=== PATIENT | male | born 1960 | race Two or more races ===

== ENCOUNTER 2021-07-21 23:51 | Emergency (ER) | payer OTHER ==
[~2021-07-21] VITALS: Ht 167.6 cm; Wt 90.0 kg
[2021-07-21 23:53] VITALS: BP 156/81
[2021-07-21] MEDS ORDERED: DUTA1CPM4 PO (23:58)
[2021-07-21] MEDS ORDERED: TELM1TAB42 PO (23:58)
== END 2021-07-22 01:34 | disposition left against medical advice (07) ==
LOC: EMS 23:53
DX: Z53.21 Procedure and treatment not carried out due to patient leaving prior to being seen by health care provider (principal)